=== PATIENT | male | born 1965 ===

== ENCOUNTER 2019-03-14 20:27 | Emergency (ER) | payer BC ==
--- NOTE | 2019-03-14 21:44 | ER ---
Nurse's Notes [facility] Name: Jose Alfredo Talavera Age: 53 yrs Sex: Male : 1965 Arrival Date: 03/14/2019 Time: 20:31 Bed 8 Private MD: Diagnosis: [place] Palsy Presentation: 03/14 20:58 Presenting complaint: Patient states: right eye "will not blink" pt with droop to right ak1 side of mouth since this afternoon. Transition of care: patient was not received from another setting of care. Onset of symptoms is unknown. Risk Assessment: Do you want to hurt yourself or someone else? Patient reports no desire to harm self or others. Initial Sepsis Screen: Does the patient meet any 2 criteria? No. Patient's initial sepsis screen is negative. Does the patient have a suspected source of infection? No. Patient's initial sepsis screen is negative. Care prior to arrival: None. 20:58 Method Of Arrival: Ambulatory ak1 20:58 Acuity: LUIS 2 ak1 Triage Assessment: 21:00 General: Appears in no apparent distress. Neuro: Level of Consciousness is awake, ak1 alert, obeys commands, Oriented to person, place, time, situation, Diversity Manager are equal bilaterally Moves all extremities. Gait is steady, Speech is normal, Facial droop on right, Facial symmetry: tongue is midline. Historical: - Allergies: 21:00 No Known Allergies; ak1 - Home Meds: 21:00 amlodipine 5 mg tab 1 tab once daily [Active]; ak1 - PMHx: 21:00 Hypertension; ak1 - Immunization history:: Adult Immunizations unknown. - Social history:: Smoking status: Patient/guardian denies using tobacco. - Ebola Screening: : No symptoms or risks identified at this time. Screenin:33 Abuse screen: Denies threats or abuse. Nutritional screening: No deficits noted. ea Tuberculosis screening: No symptoms or risk factors identified. Fall Risk None identified. Assessment: 21:31 General: Appears in no apparent distress. Behavior is calm, cooperative, appropriate ea for age. Pain: Denies pain. Neuro: Level of Consciousness is awake, alert, obeys commands, Oriented to person, place, time, situation, Diversity Manager are equal bilaterally Moves all extremities. Gait is steady, Speech is normal, Intact. Neuro: left eye drooping . Cardiovascular: Patient's skin is warm and dry. Respiratory: Airway is patent Respiratory effort is even, unlabored, Respiratory pattern is regular, symmetrical. Derm: Skin is pink, warm \\T\\ dry. Musculoskeletal: Circulation, motion, and sensation intact. 22:07 Reassessment: Patient and/or family updated on plan of care and expected duration. Pain ea level reassessed. Patient is alert, oriented x 3, equal unlabored respirations, skin warm/dry/pink. Discharge instruction given to patient, verbalized the understanding of instruction. Pt left ED ambulatory, no s/s of pain or discomfort noted, pt tolerating well. Patient states symptoms have improved. Vital Signs: 21:00 BP 177 / 101; Pulse 77; Resp 18; Temp 98.3; Pulse Ox 99% on R/A; Weight 74.84 kg (R); ak1 Height 5 ft. 6 in. (167.64 cm) (R); Pain 0/10; 21:50 BP 156 / 80; Pulse 90; Resp 18; Pulse Ox 99% ; ea 21:00 Body Mass Index 26.63 (74.84 kg, 167.64 cm) ak1 ED Course: 20:31 Patient arrived in ED. ag3 20:59 Triage completed. ak1 21:00 Arm band placed on Patient notified of wait time. ak1 21:30 Gilberto Olivas MD is Attending Physician. ps1 21:31 Elba Prince RN is Primary Nurse. ea 21:33 Patient has correct armband on for positive identification. Bed in low position. Call ea light in reach. Side rails up X2. 21:46 Bella Anthony MD is Referral Physician. ps1 22:11 No provider procedures requiring assistance completed. Patient did not have IV access ea during this emergency room visit. Administered Medications: No medications were administered Outcome: 21:43 Discharge ordered by . ps1 22:11 Discharged to home ambulatory. ea 22:11 Condition: stable 22:11 Discharge instructions given to patient, Instructed on discharge instructions, follow up and referral plans. medication usage, Demonstrated understanding of instructions, follow-up care, medications, Prescriptions given X 3. 22:12 Patient left the ED. ea Signatures: Trisha Bose RN RN ak1 Elba Prince RN RN ea Gilberto Olivas MD MD ps1 Gavin, Portia ag3
--- NOTE | 2019-03-14 21:44 | EDPHYS ---
Physician Documentation [facility] Name: Jose Alfredo Talavera Age: 53 yrs Sex: Male : 1965 Arrival Date: 03/14/2019 Time: 20:31 Bed 8 Private MD: ED Physician Gilberto Olivas HPI: 03/14 21:39 This 53 yrs old Male presents to ER via Ambulatory with complaints of [place] ps1 Palsy. 21:39 Patient has 3 day history of right facial droop and ptosis. C/w [place] palsy. Has mild ps1 irritation of right eye. No other complaints. . Historical: - Allergies: 21:00 No Known Allergies; ak1 - Home Meds: 21:00 amlodipine 5 mg tab 1 tab once daily [Active]; ak1 - PMHx: 21:00 Hypertension; ak1 - Immunization history:: Adult Immunizations unknown. - Social history:: Smoking status: Patient/guardian denies using tobacco. - Ebola Screening: : No symptoms or risks identified at this time. ROS: 21:39 Constitutional: Negative for fever, chills, and weight loss, ENT: Negative for injury, ps1 pain, and discharge, Cardiovascular: Negative for chest pain, palpitations, and edema, Respiratory: Negative for shortness of breath, cough, wheezing, and pleuritic chest pain, Abdomen/GI: Negative for abdominal pain, nausea, vomiting, diarrhea, and constipation, MS/Extremity: Negative for injury and deformity, Skin: Negative for injury, rash, and discoloration. 21:39 Eyes: Positive for right ptosis. 21:39 Neuro: Positive for CN VII defect right. facial droop. Exam: 21:39 Constitutional: This is a well developed, well nourished patient who is awake, alert, ps1 and in no acute distress. Head/Face: Normocephalic, atraumatic. ENT: Nares patent. No nasal discharge, no septal abnormalities noted. Tympanic membranes are normal and external auditory canals are clear. Oropharynx with no redness, swelling, or masses, exudates, or evidence of obstruction, uvula midline. Mucous membranes moist. Neck: Trachea midline, no thyromegaly or masses palpated, and no cervical lymphadenopathy. Supple, full range of motion without nuchal rigidity, or vertebral point tenderness. No Meningismus. Chest/axilla: Normal chest wall appearance and motion. Nontender with no deformity. No lesions are appreciated. Cardiovascular: Regular rate and rhythm. No gallops, murmurs, or rubs. Normal PMI, no JVD. No pulse deficits. Respiratory: Lungs have equal breath sounds bilaterally, clear to auscultation and percussion. No rales, rhonchi or wheezes noted. No increased work of breathing, no retractions or nasal flaring. Abdomen/GI: Soft, non-tender, with normal bowel sounds. No distension or tympany. No guarding or rebound. No evidence of tenderness throughout. Skin: Warm, dry with normal turgor. Normal color with no rashes, no lesions, and no evidence of cellulitis. MS/ Extremity: Pulses equal, no cyanosis. Neurovascular intact. Full, normal range of motion. 21:39 Neuro: Orientation: is normal, Mentation: is normal, Memory: is normal, Cranial nerves: facial droop noted on right, Ptosis of right upper eyelid. Vital Signs: 21:00 BP 177 / 101; Pulse 77; Resp 18; Temp 98.3; Pulse Ox 99% on R/A; Weight 74.84 kg (R); ak1 Height 5 ft. 6 in. (167.64 cm) (R); Pain 0/10; 21:50 BP 156 / 80; Pulse 90; Resp 18; Pulse Ox 99% ; ea 21:00 Body Mass Index 26.63 (74.84 kg, 167.64 cm) ak1 MDM: 21:43 Patient medically screened. ps1 21:44 Data reviewed: vital signs, nurses notes, and as a result, I will discharge patient. ps1 Counseling: I had a detailed discussion with the patient and/or guardian regarding: the historical points, exam findings, and any diagnostic results supporting the discharge/admit diagnosis, the need for outpatient follow up, an opthalmologist, to return to the emergency department if symptoms worsen or persist or if there are any questions or concerns that arise at home. Administered Medications: No medications were administered Disposition: 03/14/19 21:43 Discharged to Home. Impression: [place] Palsy. - Condition is Stable. - Discharge Instructions: [place] Palsy, Adult. - Prescriptions for Acyclovir 400 mg Oral Tablet - take 1 tablet by ORAL route every 8 hours; 30 tablet. Medrol (Bo) 4 mg Oral Tablets, Dose Pack - take 1 tablet by ORAL route as directed - follow package instructions; 1 packet. Erythromycin 5 mg/gram (0.5 %) Ophthalmic Ointment - apply 1 centimeter by OPHTHALMIC route 2-3 times daily for 7 days; 1 tube. - Medication Reconciliation Form, Thank You Letter, Antibiotic Education, Prescription Opioid Use form. - Follow up: Emergency Department; When: As needed; Reason: Worsening of condition. Follow up: Bella Anthony MD; When: 48 Hours; Reason: Further diagnostic work-up, Recheck today's complaints, Continuance of care. - Problem is new. - Symptoms are unchanged. Signatures: Trisha Bose RN RN ak1 Elba Prince RN RN ea Singer, Phillip, MD MD ps1 Corrections: (The following items were deleted from the chart) 21:46 21:43 03/14/2019 21:43 Discharged to Home. Impression: [place] Palsy. Condition is ps1 Stable. Forms are Medication Reconciliation Form, Thank You Letter, Antibiotic Education, Prescription Opioid Use. Follow up: Emergency Department; When: As needed; Reason: Worsening of condition. Problem is new. Symptoms are unchanged. ps1 22:12 21:46 03/14/2019 21:43 Discharged to Home. Impression: [place] Palsy. Condition is ea Stable. Discharge Instructions: Patel Palsy, Adult. Prescriptions for Acyclovir 400 mg Oral Tablet - take 1 tablet by ORAL route every 8 hours; 30 tablet, Medrol (Bo) 4 mg Oral Tablets, Dose Pack - take 1 tablet by ORAL route as directed - follow package instructions; 1 packet, Erythromycin 5 mg/gram (0.5 %) Ophthalmic Ointment - apply 1 centimeter by OPHTHALMIC route 2-3 times daily for 7 days; 1 tube. and Forms are Medication Reconciliation Form, Thank You Letter, Antibiotic Education, Prescription Opioid Use. Follow up: Emergency Department; When: As needed; Reason: Worsening of condition. Follow up: Bella Anthony; When: 48 Hours; Reason: Further diagnostic work-up, Recheck today's complaints, Continuance of care. Problem is new. Symptoms are unchanged. ps1
== END 2019-03-14 22:12 | disposition home or self-care (01) ==
LOC: ER 20:27
DX: G51.0 Bell's palsy (principal); I10 Essential (primary) hypertension
CPT/HCPCS: 99282